=== PATIENT | female | born 1965 | race Caucasian/White ===

== ENCOUNTER → 2019-08-17 | Outpatient (CLI) | payer OTHER ==
[~2019-08-17] MED LIST: ACEBUTCAFT PO; CODACE30 PO; IBUP600 PO; LORA2 PO; OXYC30 PO; SOMA350 MG PO; SUMA25 PO; VENL75ER PO
== END | disposition home or self-care (01) ==
LOC: LAB 10:45 → LAB SHORT 10:45 → EDSTATUS 13:57
DX: Z00.00 Encounter for general adult medical examination without abnormal findings (principal)